=== PATIENT | male | born 1975 | race Caucasian/White ===

== ENCOUNTER → 2020-05-12 | Outpatient (CLI) | payer OTHER ==
--- NOTE | 2020-05-12 14:34 | RADIOLOGY REPORT (SQ) ---
EXAM DESCRIPTION: L SPINE WHOLE IMAGES COMPLETED DATE/TIME: 05/12/2020 2:21 pm REASON FOR STUDY: M54.40 LUMBAGO WITH SCIATICA, UNSPECIFIED SIDE M54.40 LUMBAGO WITH SCIATICA, UNSP ECIFIED SIDE COMPARISON: None. NUMBER OF VIEWS: Five views including obliques. TECHNIQUE: AP, lateral, oblique, and sacral radiographic images acquired of the lumbar spine. LIMITATIONS: None. FINDINGS: MINERALIZATION: Normal. SEGMENTATION: Normal. No transitional anatomy. ALIGNMENT: Normal. VERTEBRAE: Maintained height. No fracture or worrisome bone lesion. DISCS: Disc space narrowing and osteophyte formation L4- 5 and L5-S1. POSTERIOR ELEMENTS: Pedicles and facets are intact. No pars defect or posterior arch defects. Facet arthropathy is present. HARDWARE: None in the spine. PARASPINAL SOFT TISSUES: Normal. PELVIS: Intact as visualized. No fractures or worrisome bone lesions. SI joints intact. OTHER: No other significant finding. IMPRESSION: SPONDYLOSIS WITHOUT BONE LESION OR FRACTURE. TECHNICAL DOCUMENTATION: JOB ID: [id number] [employer]- All Rights Reserved Reading location - IP/workstation name: [email or web address]
== END ==
LOC: RAD 13:55
PROVIDERS: ATTEND Internal Medicine
DX: M54.40 Lumbago with sciatica, unspecified side (principal); M47.817 Spondylosis without myelopathy or radiculopathy, lumbosacral region
CPT/HCPCS: 72110

== ENCOUNTER 2020-09-03 03:40 | Emergency (ER) | payer OTHER ==
--- NOTE | 2020-09-03 08:38 | ER Document Report ---
Entered by VONDA HAIDER SCRIBE 09/03/20 0735 Acting as scribe for:NICHELLE BASSETT MD ED Wound - General Chief Complaint: Other Stated Complaint: MINOR LACERATION TO INSIDE LEFT THIGH Primary Care Provider: CAIN AKINS MD [Primary Care Provider] - Follow up as needed Mode of Arrival: Medic Information source: Patient Notes: This 45 year old male patient presents to the ED today via EMS for evaluation of wound on his left thigh that started bleeding spontaneously last night. Patient states that he has had varicose veins on his legs for years and that x2 days ago, he picked a scab over one of the veins in his left thigh and it started to bleed. He states that he applied liquid glue at that time which controlled the bleeding; however, last night the wound "spurted continuously," so he called EMS. Per nursing, EMS reports that the patient lost approximately x15 ml of blood on the floor and they controlled the bleeding with gauze and a dressing. Denies taking any blood thinners or history of DVT/PE. - Related Data Allergies/Adverse Reactions: No Known Allergies Allergy (Unverified 09/03/20 03:45) Home Medications: unable to recall medication names Past Medical History - General Information source: Patient - Social History Smoking Status: Current Some Day Smoker Smoking Education Provided: No Frequency of alcohol use: daily Drug Abuse: None Family History: Reviewed & Not Pertinent Patient has suicidal ideation: No Patient has homicidal ideation: No - Past Medical History Cardiac Medical History: Reports: Hx Hypercholesterolemia, Hx Hypertension Endocrine Medical History: Reports: Hx Diabetes Mellitus Type 2 Past Surgical History: Reports: None Review of Systems - Review of Systems Constitutional: No symptoms reported EENT: No symptoms reported Cardiovascular: No symptoms reported Respiratory: No symptoms reported Gastrointestinal: No symptoms reported Genitourinary: No symptoms reported Male Genitourinary: No symptoms reported Musculoskeletal: No symptoms reported Skin: See HPI Hematologic/Lymphatic: No symptoms reported Neurological/Psychological: No symptoms reported -: Yes All other systems reviewed and negative Physical Exam - Vital signs Vitals: Pulse Resp BP Pulse Ox 96 21 H 152/86 H 96 09/03/20 03:51 09/03/20 03:51 09/03/20 03:51 09/03/20 03:51 Interpretation: Normal - General General appearance: Alert In distress: None - HEENT Head: Normocephalic, Atraumatic Eyes: Normal Pupils: PERRL - Respiratory Respiratory status: No respiratory distress Chest status: Nontender Breath sounds: Normal Chest palpation: Normal - Cardiovascular Rhythm: Regular Heart sounds: Normal auscultation Murmur: No Friction rub: No Gallop: None auscultated - Abdominal Inspection: Morbidly Obese Distension: No distension Bowel sounds: Normal Tenderness: Nontender - Abdomen soft Organomegaly: No organomegaly - Back Back: Normal, Nontender - Extremities General upper extremity: Normal inspection Thigh: Other - x2 superficial 3 mm wounds noted to left innner thigh where varicose veins are present. No active bleeding at this time. - Neurological Neuro grossly intact: Yes Orientation: AAOx4 Trent Coma Scale Eye Opening: Spontaneous [place] Coma Scale Verbal: Oriented Trent Coma Scale Motor: Obeys Commands Arcadio Coma Scale Total: 15 - Psychological Associated symptoms: Normal affect, Normal mood - Skin Skin Temperature: Warm Skin Moisture: Dry Skin Color: Normal Course - Re-evaluation Re-evalutation: 09/03/20 08:33 Patient resting comfortably no signs of bleeding. Bandage has been removed. Patient has superficial abrasions over varicose veins that are not actively bleeding at this time. - Vital Signs Vital signs: Temp Pulse Resp BP Pulse Ox 97.9 F 95 22 H 187/88 H 97 09/03/20 06:52 09/03/20 06:52 09/03/20 06:52 09/03/20 06:52 09/03/20 06:52 09/03/20 08:35 Vital signs blood pressure 187/88 patient has a history of hypertension. Patient has not taken his blood pressure medicine this a.m. Discharge - Discharge Clinical Impression: Bleeding from varicose veins of left lower extremity Condition: Stable Disposition: HOME, SELF-CARE Additional Instructions: Varicose Veins You have varicose veins. These are veins that bulge out under the skin. They develop when the valves in the veins fail. These valves normally keep blood moving upstream towards the heart. Without the valves, the pressure of the blood expands and weakens the veins. Varicose veins may simply be unsightly. But often they cause aching pains in the legs, especially after standing. There may be itching and irritation. Occasionally a vein may become clotted, with redness, tenderness, and swelling. Elevate your legs periodically during the day. Support hose can help. Don't rub or scratch at bulging veins -- this makes them worse. Don't sit with your legs crossed. Avoid standing in one place for more than a few minutes. Walking reduces the pressure in the veins. If varicose veins continue to cause severe symptoms, an operation to remove them ("vein stripping") might help. Call the doctor or return if there is increased swelling, redness, or fever, if there is general leg pain, or if a varicose veins bleeds and won't stop after 15 minutes of direct pressure. Referrals: CAIN AKINS MD [Primary Care Provider] - Follow up as needed I personally performed the services described in the documentation, reviewed and edited the documentation which was dictated to the scribe in my presence, and it accurately records my words and actions.
[2020-09-03 08:58] VITALS: BP 170/87
== END 2020-09-03 08:58 | disposition home or self-care (01) ==
LOC: ER 03:40
DX: I83.892 Varicose veins of left lower extremity with other complications (principal); F17.200 Nicotine dependence, unspecified, uncomplicated; I10 Essential (primary) hypertension; E11.9 Type 2 diabetes mellitus without complications
CPT/HCPCS: 99282